=== PATIENT | female | born 1995 | race Caucasian/White ===

== ENCOUNTER 2017-08-16 20:09 | Emergency (ER) | payer SELFPAY ==
[2017-08-16 20:17] VITALS: BP 125/86; PULSE 76; TEMP 98.5; O2SAT 99
--- NOTE | 2017-08-16 21:14 | C.PDOC ---
History Of Present Illness 22 year old female presents to the ER with a complaint of nasal congestion and a headache that she describes as facial pressure for the past 2 days, associated with a mild cough. Denies chest pain, chest tightness, SOB, dizziness , or fever. Time Seen by Provider: 08/16/17 20:42 Chief Complaint (Nursing): Cough, Cold, Congestion History Per: Patient History/Exam Limitations: no limitations Onset/Duration Of Symptoms: Days Current Symptoms Are (Timing): Still Present Location Of Pain: Headache Sick Contacts (Context): None Associated Symptoms: Cough, Nasal Congestion, Other (Headache) Ear Symptoms: Bilateral: None Recent travel outside of the [place]: No Past Medical History Reviewed: Historical Data, Nursing Documentation, Vital Signs Vital Signs: Last Vital Signs Temp 98.5 F 08/16/17 20:14 Pulse 76 08/16/17 20:14 Resp 20 08/16/17 21:33 BP 125/86 08/16/17 20:14 Pulse Ox 99 08/16/17 22:57 - Medical History PMH: Migraine Family History: States: Unknown Family Hx - Social History Hx Tobacco Use: No Hx Alcohol Use: No Hx Substance Use: No - Immunization History Hx Tetanus Toxoid Vaccination: No Hx Influenza Vaccination: No Hx Pneumococcal Vaccination: No Review Of Systems Constitutional: Negative for: Fever, Chills ENT: Positive for: Nose Congestion Cardiovascular: Negative for: Chest Pain Respiratory: Positive for: Cough. Negative for: Shortness of Breath, Other ( Chest tightness) Neurological: Positive for: Headache Physical Exam - Physical Exam Appears: Non-toxic, No Acute Distress Skin: Normal Color, Warm, Dry Head: Atraumatic, Normacephalic, Other ((+) frontal sinuses tenderness) Eye(s): bilateral: Normal Inspection, PERRL Ear(s): Bilateral: Normal Nose: Other (Enlarged nasal turbinates with whitish discharge.) Oral Mucosa: Moist Throat: Normal, No Erythema, No Exudate Neck: Normal, Supple Chest: Symmetrical, No Tenderness Cardiovascular: Rhythm Regular Respiratory: Normal Breath Sounds, No Rales, No Rhonchi, No Wheezing Neurological/Psych: Oriented x3, Normal Speech ED Course And Treatment O2 Sat by Pulse Oximetry: 99 (Room air) Pulse Ox Interpretation: Normal Progress Note: Patient is resting comfortably in the ER at this time in no acute distress, she was reassured that she is in no acute danger at this time. Will discharge home with instructions to take OTC medication as needed and to follow up with PMD for further evaluation or return to the ER for any worsening symptoms. Disposition Counseled Patient/Family Regarding: Diagnosis, Need For Followup, Rx Given - Disposition Referrals: [facility] [Outside] Disposition: HOME/ ROUTINE Disposition Time: 21:09 Condition: STABLE Additional Instructions: Please follow up with PMD Take meds as directed Return to ER if worse Prescriptions: Cetirizine HCl [Zyrtec] 10 mg PO DAILY #14 capsule Ibuprofen [Motrin] 600 mg PO Q6H #20 tab Mometasone Furoate [Nasonex] 2 spray NS DAILY #1 bottle Instructions: Sinusitis (ED) Forms: [employer] (Romanian) Print Language: ARMENIAN - Clinical Impression Clinical Impression: Sinusitis - PA / ACETYLENE BURNER / Resident Statement MD/DO has reviewed & agrees with the documentation as recorded. - Scribe Statement The provider has reviewed the documentation as recorded by the Scribliborio Chahal All medical record entries made by the Latanyaibliborio were at my direction and personally dictated by me. I have reviewed the chart and agree that the record accurately reflects my personal performance of the history, physical exam, medical decision making, and the department course for this patient. I have also personally directed, reviewed, and agree with the discharge instructions and disposition.
[2017-08-16 21:34] VITALS: RESP 20
== END 2017-08-16 21:34 | disposition home or self-care (01) ==
LOC: C.ER 20:09
DX: J32.9 Chronic sinusitis, unspecified (principal)

== ENCOUNTER 2018-02-15 17:21 | Emergency (ER) | payer SELFPAY ==
--- NOTE | 2018-02-15 17:50 | C.PDOC ---
History Of Present Illness 22 year old female with PMH of migraines presents to the ED complaining of frontal pounding headache that started since waking up this morning. Patient took Nishi-Neurobion with little relief. She describes headache to similar migraine headaches in the past. This is not the worst headache of her life. She denies any fever, dizziness, vomiting. Time Seen by Provider: 02/15/18 17:38 Chief Complaint (Nursing): Headache History Per: Patient History/Exam Limitations: no limitations Onset/Duration Of Symptoms: Hrs Current Symptoms Are (Timing): Still Present Associated Symptoms: Photophobia. denies: Nausea, Vomiting Past Medical History Reviewed: Historical Data, Nursing Documentation, Vital Signs Vital Signs: Last Vital Signs Temp 98.3 F 02/15/18 17:28 Pulse 82 02/15/18 17:28 Resp 20 02/15/18 17:28 BP 128/85 02/15/18 17:28 Pulse Ox 98 02/15/18 18:23 - Medical History PMH: Migraine Surgical History: No Surg Hx Family History: States: Unknown Family Hx - Social History Hx Tobacco Use: No Hx Alcohol Use: Yes Hx Substance Use: No - Immunization History Hx Tetanus Toxoid Vaccination: No Hx Influenza Vaccination: No Hx Pneumococcal Vaccination: No Review Of Systems Constitutional: Negative for: Fever, Weakness, Malaise Eyes: Negative for: Vision Change, Redness ENT: Negative for: Ear Pain, Nose Congestion, Throat Pain Respiratory: Negative for: Cough, Shortness of Breath Gastrointestinal: Negative for: Nausea, Vomiting, Abdominal Pain Skin: Negative for: Rash Neurological: Positive for: Headache. Negative for: Weakness, Numbness, Dizziness Physical Exam - Physical Exam Appears: Non-toxic Skin: Warm, Dry Head: Atraumatic, Normacephalic, No Tenderness, No Swelling Eye(s): bilateral: Normal Inspection, PERRL, EOMI, Photophobia Ear(s): Bilateral: Normal Nose: Normal Oral Mucosa: Moist Throat: Normal, No Erythema, No Exudate, No Drooling, No Mass Neck: Normal ROM, Supple Chest: Symmetrical Cardiovascular: Rhythm Regular, No Murmur Respiratory: Normal Breath Sounds, No Rales, No Rhonchi, No Wheezing Extremity: Bilateral: Atraumatic, Normal Color And Temperature, Normal ROM Neurological/Psych: Oriented x3, Normal Speech, Normal Cranial Nerves (2-12 grossly intact), Normal Motor, Normal Sensation Gait: Steady ED Course And Treatment O2 Sat by Pulse Oximetry: 98 (RA) Pulse Ox Interpretation: Normal Medical Decision Making Medical Decision Making: Impression: Migraine headache Orders: - Reglan 10mg PO - Toradol 60mg IM On reassessment, patient is resting comfortably, is tolerating PO, and pain has improved. Patient has no fever, neurologic deficit, photophobia, rash, or nuchal rigidity. Patient was instructed to follow up with physician/clinic in 1- 2 days. Rx given. Recommend rest, fluids and analgesics. Advise return to the ER if any alteration in behavior or mental status, severe headache, nausea, persistent vomiting, or loss of consciousness occurs. Disposition Counseled Patient/Family Regarding: Diagnosis, Need For Followup, Rx Given - Disposition [facility]errals: [facility]Outside[facility] [Outside] Disposition: HOME/ ROUTINE Disposition Time: 18:24 Condition: STABLE Additional Instructions: Take medication as needed for headache. Follow up with your doctor or clinic. Return to the ER if any alteration in behavior or mental status, severe headache , nausea, persistent vomiting, or loss of consciousness occurs. Cucumber medicamentos segn sea necesario para el dolor de serena. Heaven un seguimiento con brand mdico o clnica. Regrese a la audrey de emergencias si ocurre alguna alteracin en el comportamiento o estado mental, dolor de serena intenso, nuseas, vmitos persistentes o prdida de la conciencia. Prescriptions: Acetaminophen/Butalbital/Caf [Fioricet] 1 tab PO TID PRN #20 tab PRN Reason: Headache Ibuprofen [Motrin] 600 mg PO Q8 #30 tab Instructions: Migraine Headache (DC) Print Language: UGANDAN - POA Present On Arrival: None - Clinical Impression Clinical Impression: Migraine - PA / [employer] / Resident Statement MD/DO has reviewed & agrees with the documentation as recorded. - Scribe Statement The provider has reviewed the documentation as recorded by the Latanyaibliborio Sanches All medical record entries made by the Scribe were at my direction and personally dictated by me. I have reviewed the chart and agree that the record accurately reflects my personal performance of the history, physical exam, medical decision making, and the department course for this patient. I have also personally directed, reviewed, and agree with the discharge instructions and disposition.
[2018-02-15 18:42] VITALS: BP 129/83; PULSE 72; RESP 18; TEMP 99.4
[2018-02-16 13:52] VITALS: O2SAT 98
== END 2018-02-15 18:40 | disposition home or self-care (01) ==
LOC: C.ER 17:21
DX: G43.909 Migraine, unspecified, not intractable, without status migrainosus (principal)
CPT/HCPCS: 96372; 99284; J1885